=== PATIENT | female | born 1935 | race Caucasian/White ===

== ENCOUNTER → 2020-02-14 | Outpatient (CLI) | payer MEDICARE ==
[2020-02-14 10:56] VITALS: BP 190/107; PULSE 79; RESP 16
--- NOTE | 2020-02-14 12:35 | P.PAINCN ---
History of Present Illness - Reason for Consult Consult date: 02/13/20 - History of Present Illness This is a 85-year-old patient referred by Dr. Bustillo with a chief complaint of chronic pain in the low back with radiation into the lateral aspect of the left leg stopping at the knee. She has a history of chronic pain in diffuse neuropathy throughout her entire body. She says that she is a pain for most of her life however in the last 3 months things have gotten worse. She feels increasingly weak in her legs and unsteady on her feet. This is due to the new pain that started in her left low back with radiation to the knee, not her long- standing neuropathy or any long-standing weakness. She describes the pain as sharp and stabbing alleviated only by sitting and exacerbated by standing or walking. She says prior to at least 3 months she is to be able to walk around the house however now she cannot the pain. She notes that when she does walk she has had a few falls this month unfortunately. She did have back surgery around 20 years ago which was an L4-S1 fusion. In regards to her full-body neuropathy she mentions that she went [facility] for evaluation and diagnosis of idiopathic neuropathy. She takes [place] 54 times a day, gabapentin 300 mg 4 times a day, and CBD oil. She mentions that in the past she did have some form of back injection from a pain management physician however she is unsure what it was and willing to try something new as this pain complaint is new. Currently her pain is an 8 out of 10. Of note she does have diabetes and is on metformin. Patient denies adverse drug effects from medications. Patient also denies new- onset weakness, bowel/bladder incontinence, or any other signs or symptoms of cauda equina syndrome. There are no signs of acute intoxication, and no indications of medication diversion or overuse. In addition to above, 13-point review of systems is also negative for chest pain, shortness of breath, changes in vision, changes in hearing, new onset weakness, abdominal pain, diarrhea, extreme fatigue, malaise, fever, skin changes, homicidal or suicidal ideation, or bowel or bladder incontinence. Physical exam: Vital Signs: Reviewed in EMR GENERAL: wheelchair bound, is able to stand if needed PSYCH: Mood and affect is appropriate. Awake, alert, and oriented SKIN: Skin color, texture, turgor normal, no rashes or lesions HEENT: Normocephalic, atraumatic. EOM intact CV: No pedal edema RESP: Respirations are unlabored, no audible wheezing GI: Abdomen non-distended MUSCULOSKELETAL: Bilateral upper and lower extremity strength is normal and symmetric. Mild atrophy noted in lumbar paraspinal musculature Lumbar spine: Straight leg raising in the sitting position is negative for radicular pain. No pain to palpation over the lumbar spine and paraspinous muscles. Mild pain on facet loading Decreased range of motion with pain reproduction Buttocks: No pain to palpation over the PSIS, Zane test is negative Extremities: Peripheral joint ROM is full and pain free without obvious insta bility or laxity in all four extremities. No edema or skin discolorations noted. Gait: Gait is normal NEUR: Bilateral upper and lower extremity coordination and muscle stretch reflexes are physiologic and symmetric. Negative clonus. Significantly decreased loss of sensation in bilateral legs and feet. Cranial nerves are grossly intact. Imaging: CT lumbar spine 12/2019 Lumbar sacral fusion from L4 to L5 L5-S1 laminectomies those levels. Mild stenosis L2 to L3. At L3-L4 there is hypertrophic facet arthropathy with a posterior disc herniation resulting in mild to moderate stenosis. Circumf erential extension of endplates of discomfort at L3-L4 causes bilateral foraminal encroachment. Superior endplate fracture at L1 shows loss of height of approximately 25%. Broad-based posterior disc bulge is also present at L1-L2 causing mild anterior mass effect Assessment: 1. Lumbar spondylosis with radicular pain 2. Prior laminectomy 3. Idiopathic neuropathy Plan: 1. Explanation: Diagnoses, prognoses, and multiple treatment options including but not limited to physical therapy, interventional therapies, medication management and surgery were discussed with the patient and all questions were answered to the patient's satisfaction. 2. Investigations: None 3. Counseling: The patient was counseled for 3 minutes on EXERCISE. Specifically, the patient was instructed regarding the importance of exercise in the context of both chronic pain and overall health. 4. Procedures: Schedule patient for L3-L4 left transforaminal epidural injection. She has a fusion L4 to S1 with his most recent computed tomography scan showing some disc bulging at L3-L4 with bilateral foraminal encroachment. Given that her symptoms are only in the left side we will only target the left side. If this does not work we will eventually consider medial branch workup given that she does have a lumbar fusion which can tend to lead to facet mediated pain from joint adjacent to the fusion 5. Consultations: She does have a high blood pressure 190/107 today and we asked her to follow-up with her PCP which she will do 6. Medications: Defer to PCP 7. Disposition: For above procedure Past Medical History Past Medical History: Diabetes Mellitus, Hyperlipidemia, Hypertension, Osteoarthritis (OA) Additional Past Medical History / Comment(s): NEUROPATHY, HX FALLS, HEAD INJURY 3 YRS AGO., C- DIFF (2016).,HX RIGHT ANKLE FX (2016), NECK AND BACK PAIN, USES WALKER, PT HAS HX OF MAJORITY OF LARGE INTESTINE REMOVED AND HAS LOOSE STOOLS- DAUGHTER STATES NA+ AND K+ ARE FREQUENTLY LOW., PT RESIDES AT [facility]. (# [phone] #[phone]). POSSIBLE COPD DUE TO 2ND HAND SMOKE., DAUGHTER FIOR # [phone]. History of Any Multi-Drug Resistant Organisms: None Reported Year Discovered:: 04/20/16 MDRO Source:: STOOL(WAS TESTED AT [employer]) Past Surgical History: Appendectomy, Back Surgery, Bowel Resection Additional Past Surgical History / Comment(s): most of bowel removed in 1981 , neck surgery Past Anesthesia/Blood Transfusion Reactions: No Reported Reaction Past Psychological History: Anxiety, Depression Smoking Status: Never smoker, Second hand smoke exposure Past Alcohol Use History: None Reported Past Drug Use History: None Reported Additional Drug Use History / Comment(s): DAUGHTER STATES CBD OIL - Past Family History Father Family Medical History: Myocardial Infarction (SD) Additional Family Medical History / Comment(s): at age 80 Mother Family Medical History: Myocardial Infarction (SD) Additional Family Medical History / Comment(s): at age 67 Medications and Allergies Home Medications Medication Instructions Recorded Confirmed Type ALPRAZolam [Xanax] 0.25 mg PO BID 02/13/20 02/14/20 History Acetaminophen Suppository [Tylenol 650 mg RECTAL Q4H PRN 02/13/20 02/14/20 History Suppository] Acetaminophen Tab [Tylenol Tab] 500 mg PO BID 02/13/20 02/14/20 History Albuterol Inhaler [Ventolin Hfa 2 puff INHALATION Q4HR PRN 02/13/20 02/14/20 History Inhaler] Albuterol Nebulized [Ventolin 2.5 mg INHALATION BID PRN 02/13/20 02/14/20 History Nebulized] Calcium Carbonate/Vitamin D3 1 each PO TID 02/13/20 02/14/20 History [Calcium 600-Vit D3 200 Tablet] Cannabidiol (Cbd) [Epidiolex] 1 tab PO TID 02/13/20 02/14/20 History Cetirizine HCl 10 mg PO DAILY PRN 02/13/20 02/14/20 History DULoxetine HCL [Cymbalta] 30 mg PO DAILY 02/13/20 02/14/20 History Diltiazem HCl [Cartia Xt] 180 mg PO DAILY 02/13/20 02/14/20 History Famotidine 20 mg PO DAILY PRN 02/13/20 02/14/20 History Fluticasone/Salmeterol [Advair 1 inhalation PO BID 02/13/20 02/14/20 History 100-50 Diskus] Gabapentin 300 mg PO QID 02/13/20 02/14/20 History HYDROcodone/APAP 5-325MG [[place] 1 tab PO QID 02/13/20 02/14/20 History 5-325] Lisinopril-Hctz 20-25 mg 1 tab PO BID 02/13/20 02/14/20 History [Zestoretic 20-25] Loperamide [Imodium] 4 mg PO DIRECTED PRN 02/13/20 02/14/20 History Meloxicam 15 mg PO HS 02/13/20 02/14/20 History Metoprolol Succinate [[place]apspargo 50 mg PO DAILY 02/13/20 02/14/20 History Sprinkle] Na Phos,M-B/Na Phos,Di-Ba [Fleet 133 ml RECTAL DAILY PRN 02/13/20 02/14/20 History Adult] Nystatin 100,000Unit/gm Cream 1 applic TOPICAL BID 02/13/20 02/14/20 History [Mycostatin Cream] Ondansetron [Zofran] 4 mg PO Q8HR PRN 02/13/20 02/14/20 History Sennosides/Docusate Sodium 1 each PO DAILY 02/13/20 02/14/20 History [Senna-S 8.6-50 mg Tablet] Thiamine [Vitamin B-1] 100 mg PO DAILY 02/13/20 02/14/20 History Ubidecarenone [Coenzyme Q10] 30 mg PO DAILY 02/13/20 02/14/20 History bisacodyL [Bisacodyl] 10 mg RECTAL DAILY PRN 02/13/20 02/14/20 History guaiFENesin [Mucinex] 600 mg PO Q12HR 02/13/20 02/14/20 History hydrALAZINE HCL 10 mg PO DAILY 02/13/20 02/14/20 History metFORMIN HCL [Glucophage] 500 mg PO DAILY 02/13/20 02/14/20 History Mag Hydrox/Aluminum Hyd/Simeth 30 ml PO HS PRN 02/14/20 02/14/20 History [Mylanta Maximum Strength Liq] Magnesium Hydroxide [Milk of 30 ml PO DAILY PRN 02/14/20 02/14/20 History Magnesia] Menthol [Biofreeze] 1 applicate TOPICAL TID PRN 02/14/20 02/14/20 History Non Formulary Drug 1 applicate TOPICAL BID PRN 02/14/20 02/14/20 History guaiFENesin SYRUP 100MG/5ML 10 ml PO Q4HR PRN 02/14/20 02/14/20 History [Robitussin] hydrOXYzine HCL [Atarax] 25 mg PO Q8H PRN 02/14/20 02/14/20 History Allergies Allergy/AdvReac Type Severity Reaction Status Date / Time propoxyphene HCl Allergy Rash/Hives Verified 02/14/20 10:35 [From [place]] Physical Exam Vitals: Intake and Output 02/13/20 02/13/20 02/13/20 06:59 14:59 22:59 Other: Weight 66.678 kg PQRS Measure Charge Sheet Measure #226: Tobacco Use: Screen & Cessation Intervention: Pt not a tobacco user Measure #111: Pneumonia Vaccination: Pneumococcal vaccine administered or previously received Measure #47: Advance Care Plan: Advance care planning discussed & documented, pt chose/unable to give Measure #412: Opioid Treatment Agreement: No documentation of signed opioid treatment agreement Measure #128: Body Mass Index (BMI) Screening & Follow-up: BMI documented ABOVE normal parameters - f/u documented Measure #131: Pain Assessment & Follow-up: Pain positive & plan documented, Follow-up scheduled PQRS Narrative: Smoking Status Never smoker Home Medications: Ambulatory Orders ALPRAZolam [Xanax] 0.25 mg PO BID 02/13/20 Acetaminophen Suppository [Tylenol Suppository] 650 mg RECTAL Q4H PRN 02/13/20 Acetaminophen Tab [Tylenol Tab] 500 mg PO BID 02/13/20 Albuterol Inhaler [Ventolin Hfa Inhaler] 2 puff INHALATION Q4HR PRN 02/13/20 Albuterol Nebulized [Ventolin Nebulized] 2.5 mg INHALATION BID PRN 02/13/20 Calcium Carbonate/Vitamin D3 [Calcium 600-Vit D3 200 Tablet] 1 each PO TID 02/13/20 Cannabidiol (Cbd) [Epidiolex] 1 tab PO TID 02/13/20 Cetirizine HCl 10 mg PO DAILY PRN 02/13/20 DULoxetine HCL [Cymbalta] 30 mg PO DAILY 02/13/20 Diltiazem HCl [Cartia Xt] 180 mg PO DAILY 02/13/20 Famotidine 20 mg PO DAILY PRN 02/13/20 Fluticasone/Salmeterol [Advair 100-50 Diskus] 1 inhalation PO BID 02/13/20 Gabapentin 300 mg PO QID 02/13/20 HYDROcodone/APAP 5-325MG [[place] 5-325] 1 tab PO QID 02/13/20 Lisinopril-Hctz 20-25 mg [Zestoretic 20-25] 1 tab PO BID 02/13/20 Loperamide [Imodium] 4 mg PO DIRECTED PRN 02/13/20 Meloxicam 15 mg PO HS 02/13/20 Metoprolol Succinate [[place] Sprinkle] 50 mg PO DAILY 02/13/20 Na Phos,M-B/Na Phos,Di-Ba [Fleet Adult] 133 ml RECTAL DAILY PRN 02/13/20 Nystatin 100,000Unit/gm Cream [Mycostatin Cream] 1 applic TOPICAL BID 02/13/20 Ondansetron [Zofran] 4 mg PO Q8HR PRN 02/13/20 Sennosides/Docusate Sodium [Senna-S 8.6-50 mg Tablet] 1 each PO DAILY 02/13/20 Thiamine [Vitamin B-1] 100 mg PO DAILY 02/13/20 Ubidecarenone [Coenzyme Q10] 30 mg PO DAILY 02/13/20 bisacodyL [Bisacodyl] 10 mg RECTAL DAILY PRN 02/13/20 guaiFENesin [Mucinex] 600 mg PO Q12HR 02/13/20 hydrALAZINE HCL 10 mg PO DAILY 02/13/20 metFORMIN HCL [Glucophage] 500 mg PO DAILY 02/13/20 Mag Hydrox/Aluminum Hyd/Simeth [Mylanta Maximum Strength Liq] 30 ml PO HS PRN 02/14/20 Magnesium Hydroxide [Milk of Magnesia] 30 ml PO DAILY PRN 02/14/20 Menthol [Biofreeze] 1 applicate TOPICAL TID PRN 02/14/20 Non Formulary Drug 1 applicate TOPICAL BID PRN 02/14/20 guaiFENesin SYRUP 100MG/5ML [Robitussin] 10 ml PO Q4HR PRN 02/14/20 hydrOXYzine HCL [Atarax] 25 mg PO Q8H PRN 02/14/20
== END | disposition home or self-care (01) ==
LOC: PNWHC3 10:11
PROVIDERS: ATTEND Anesthesiology
DX: M47.26 Other spondylosis with radiculopathy, lumbar region (principal); G60.9 Hereditary and idiopathic neuropathy, unspecified; I10 Essential (primary) hypertension; E78.5 Hyperlipidemia, unspecified; G62.9 Polyneuropathy, unspecified; M19.90 Unspecified osteoarthritis, unspecified site; E11.9 Type 2 diabetes mellitus without complications; Z98.890 Other specified postprocedural states; Z79.899 Other long term (current) drug therapy; Z79.51 Long term (current) use of inhaled steroids; Z79.891 Long term (current) use of opiate analgesic; Z79.1 Long term (current) use of non-steroidal anti-inflammatories (NSAID); Z79.84 Long term (current) use of oral hypoglycemic drugs; Z88.6 Allergy status to analgesic agent
CPT/HCPCS: 99201

== ENCOUNTER 2020-02-27 11:54 | Day surgery (SDC) | payer MEDICARE ==
[2020-02-23 11:41] VITALS: BMI 25.0
[~2020-02-27 11:54] MED LIST: LACTATED RINGERS 1,000 ML IV SCH
[2020-02-27 12:13] VITALS: RESP 16; TEMP 97.3
[2020-02-27 12:26] LABS: Glucose,Whole Blood 99 mg/dL (75-99)
[2020-02-27] MEDS ORDERED: methylPREDNISolone ACETATE 80 MG/ML 1 ML VIAL ONE (12:32)
[2020-02-27] MEDS ORDERED: MIDAZOLAM 2 MG/2 ML VIAL ONE (12:32)
[2020-02-27] MEDS ORDERED: fentaNYL (PF) 50 MCG/ML 2 ML AMP ONE (12:32)
[2020-02-27] MEDS ORDERED: IOPAMIDOL M200 10 ML VIAL ONE (12:32)
[2020-02-27] MEDS ORDERED: IV FLUID CONTINUATION 1,000 ML IV ONE (12:59)
[2020-02-27 13:02] VITALS: PULSE 79
--- NOTE | 2020-02-27 13:02 | P.PCN ---
Date of Procedure: 02/27/20 Procedure(s) Performed: PREOPERATIVE DIAGNOSIS: 1-Lumbar radiculopathy . 2-lumbar spondylosis and lumbar facet arthropathy without myelopathy. 3-Failed Back surgery syndrome lumbar area POSTOPERATIVE DIAGNOSIS: Same as preoperative diagnoses. PROCEDURE 1. Transforaminal epidural steroid injection under fluoroscopic guidance at the left L3-4 level. (Fluoroscopy images stored on file in the radiology Department ) 2. Lumbar epidurogram : ANESTHESIA: Local with 1% lidocaine 3 ml , moderate sedation with intravenous Versed 1 mg and fentanyle 100 micrograms EBL: Minimal PROCEDURE INDICATION: The patient with low back pain and radiculopathy symptoms unresponsive to conservative treatment. PROCEDURE DESCRIPTION / TECHNIQUE: The patient was seen and identified in the preoperative area. Risks, benefits, complications, and alternatives were discussed with the patient. The patient agreed to proceed with the procedure and signed the consent. IV was started, and vital signs were stable. Patient was taken to the OR and time out was completed. The patient was placed in the prone position on procedure table and a pillow was placed under the abdomen to reduce lumbar lordosis. The lumbosacral area was prepped and draped in the usual sterile fashion. Critical pause was taken. Vital signs were closely monitored during the procedure. Conscious sedation was used during the procedure to decrease patient s anxiety. Using oblique fluoroscopy, the chin of the ``Yandel dog at left L3-4 level was identified, and the skin and deeper tissues just below was localized with 1% lidocaine. Subsequently, a 22-gauge 3.5-inch spinal needle was advanced under a tunneled view fluoroscopic guidance just underneath the chin of the `Sunily dog at the left L3-4 Under lateral fluoroscopy, the needle was then advanced to the posterior border of the interforaminal space. After negative aspiration of CSF and blood and with no paresthesias, 1 mL Isovue 200 contrast dye was injected excellent epidurogram and outlining of the nerve root Subsequently, 3 mL of block solution containing 40 mg Depo-Medrol and 2 mL of 0.9% normal saline PF was injected. Needle was removed intact . At the end of the procedure, skin was cleansed, and bandages were applied. COMPLICATIONS:none DISPOSITION / PLANS: The patient was placed in a supine position and transferred to the recovery area in a stable condition for observation. There was no evidence of lower extremity motor or sensory deficit after the procedure. Patient was discharged from the recovery room after meeting discharge criteria. Home discharge instructions were given to the patient by the staff. The patient was reexamined prior to discharge.
[2020-02-27 13:16] VITALS: BP 145/78
--- NOTE | 2020-02-27 14:01 | FL ---
EXAMINATION TYPE: FL guided pain mgmt statistic DATE OF EXAM: 02/27/2020 CLINICAL HISTORY: Low back pain. TECHNIQUE: Fluoroscopy. COMPARISON: None. FINDINGS: Fluoroscopic guidance was provided during pain relief procedure performed by Dr. Stout . A total of 13 seconds of fluoroscopic time was utilized during the procedure and single spot image s are acquired. Single image acquired shows needle localization in the lumbar spine. Partial visuali zation of surgical change lower lumbar spine noted. IMPRESSION: As Above.
== END 2020-02-27 13:35 | disposition home or self-care (01) ==
LOC: ORPAIN 11:54
PROVIDERS: ATTEND Specialist
DX: M47.26 Other spondylosis with radiculopathy, lumbar region (principal); M96.1 Postlaminectomy syndrome, not elsewhere classified; I25.10 Atherosclerotic heart disease of native coronary artery without angina pectoris; I10 Essential (primary) hypertension; E11.9 Type 2 diabetes mellitus without complications; Z88.5 Allergy status to narcotic agent
CPT/HCPCS: 64483; J2250; J1040; J3010; Q9966; 99152

== ENCOUNTER 2020-04-02 09:48 | Day surgery (SDC) | payer MEDICARE ==
[2020-03-29 09:12] VITALS: BMI 25.0
[2020-04-02 10:39] VITALS: PULSE 76; RESP 16; TEMP 97.5
[2020-04-02 11:01] LABS: Glucose,Whole Blood 111 mg/dL (75-99)
[2020-04-02] MEDS ORDERED: IOPAMIDOL M200 10 ML VIAL ONE (11:06)
[2020-04-02] MEDS ORDERED: methylPREDNISolone ACETATE 40 MG/ML 1 ML VIAL ONE (11:06)
[2020-04-02] MEDS ORDERED: fentaNYL (PF) 50 MCG/ML 2 ML AMP ONE (11:06)
[2020-04-02] MEDS ORDERED: MIDAZOLAM 2 MG/2 ML VIAL ONE (11:06)
--- NOTE | 2020-04-02 11:21 | P.PCN ---
Date of Procedure: 04/02/20 Procedure(s) Performed: PREOPERATIVE DIAGNOSIS: 1-Lumbar radiculopathy . 2-lumbar spondylosis and lumbar facet arthropathy without myelopathy. 3-Failed Back surgery syndrome lumbar area POSTOPERATIVE DIAGNOSIS: Same as preoperative diagnoses. PROCEDURE 1. Transforaminal epidural steroid injection under fluoroscopic guidance at the left L3-4 level. (Fluoroscopy images stored on file in the radiology Department ) 2. Lumbar epidurogram : ANESTHESIA: Local with 1% lidocaine 3 ml , moderate sedation with intravenous Versed 1 mg and fentanyle 100 micrograms EBL: Minimal PROCEDURE INDICATION: The patient with low back pain and radiculopathy symptoms unresponsive to conservative treatment. PROCEDURE DESCRIPTION / TECHNIQUE: The patient was seen and identified in the preoperative area. Risks, benefits, complications, and alternatives were discussed with the patient. The patient agreed to proceed with the procedure and signed the consent. IV was started, and vital signs were stable. Patient was taken to the OR and time out was completed. The patient was placed in the prone position on procedure table and a pillow was placed under the abdomen to reduce lumbar lordosis. The lumbosacral area was prepped and draped in the usual sterile fashion. Critical pause was taken. Vital signs were closely monitored during the procedure. Conscious sedation was used during the procedure to decrease patient s anxiety. Using oblique fluoroscopy, the chin of the ``Yandel dog at left L3-4 level was identified, and the skin and deeper tissues just below was localized with 1% lidocaine. Subsequently, a 22-gauge 3.5-inch spinal needle was advanced under a tunneled view fluoroscopic guidance just underneath the chin of the `Sunily dog at the left L3-4 Under lateral fluoroscopy, the needle was then advanced to the posterior border of the interforaminal space. After negative aspiration of CSF and blood and with no paresthesias, 1 mL Isovue 200 contrast dye was injected excellent epidurogram and outlining of the nerve root Subsequently, 3 mL of block solution containing 40 mg Depo-Medrol and 2 mL of 0.9% normal saline PF was injected. Needle was removed intact . At the end of the procedure, skin was cleansed, and bandages were applied. COMPLICATIONS:none DISPOSITION / PLANS: The patient was placed in a supine position and transferred to the recovery area in a stable condition for observation. There was no evidence of lower extremity motor or sensory deficit after the procedure. Patient was discharged from the recovery room after meeting discharge criteria. Home discharge instructions were given to the patient by the staff. The patient was reexamined prior to discharge.
[2020-04-02] MEDS ORDERED: IV FLUID CONTINUATION 1,000 ML IV ONE (11:28)
[2020-04-02 11:36] VITALS: BP 179/80
--- NOTE | 2020-04-02 11:41 | FL ---
EXAMINATION TYPE: FL guided pain mgmt statistic DATE OF EXAM: 04/02/2020 HISTORY: Fluoroscopy time 3 seconds of fluoroscopy provided. IMPRESSION: 1. Fluoroscopy time.
== END 2020-04-02 12:08 | disposition home or self-care (01) ==
LOC: ORPAIN 09:48
PROVIDERS: ATTEND Specialist
DX: M47.26 Other spondylosis with radiculopathy, lumbar region (principal); M96.1 Postlaminectomy syndrome, not elsewhere classified; E11.9 Type 2 diabetes mellitus without complications; Z88.5 Allergy status to narcotic agent
CPT/HCPCS: 64483; J2250; J1030; J3010; Q9966; 99152